=== PATIENT | female | born 1955 | race Caucasian/White ===

== ENCOUNTER 2018-10-03 13:46 | Emergency (ER) | payer MEDICARE, OTHER ==
[~2018-10-03] VITALS: Ht 165.1 cm; Wt 100.0 kg
[~2018-10-03 13:46] MED LIST: ATOR40TA71 PO; CALC667C PO; CINA30; DOCU250C91 PO; FOLI1TAB15 PO; GABA-531 PO; INSU100C4 SQ; METO10TA3 PO; OMEP20CA10 PO; SEVEC800 PO; SIME80TA66 PO; VIT1TABL75 PO; [UNRECOGNIZED DRUG - CODE] OU
[2018-10-03 14:10] LABS: GLUCOSE,POINT OF CARE 186 MG/DL (70-110)
[2018-10-03 15:15] VITALS: BP 133/66
== END 2018-10-03 15:33 | disposition home or self-care (01) ==
LOC: EMS 13:47
DX: J32.9 Chronic sinusitis, unspecified (principal); M79.10 Myalgia, unspecified site; I12.0 Hypertensive chronic kidney disease with stage 5 chronic kidney disease or end stage renal disease; E11.22 Type 2 diabetes mellitus with diabetic chronic kidney disease; N18.6 End stage renal disease; Z79.4 Long term (current) use of insulin; Z88.0 Allergy status to penicillin